=== PATIENT | female | born 1960 | race African-American/Black ===

== ENCOUNTER 2023-03-28 20:54 | Emergency (ER) | payer OTHER ==
[~2023-03-28] VITALS: Ht 162.6 cm; Wt 65.0 kg
[~2023-03-28 20:54] MED LIST: ACET-2247 PO; BUME1TAB34 PO; DOCU-385 PO; FAMO20 PO; HEPA500018 SQ; HYDR-4723 PO; LOSA-381 PO; METO25XL PO; METO5TAB7 PO; SPIR-37 PO
[2023-03-28 20:58] VITALS: TEMP 97.9
[2023-03-28 21:56] LABS: BASOPHILS % (AUTO) 0.7 % (0.0-2.0); EOSINOPHILS % (AUTO) 0.8 % (1.0-6.0); HEMATOCRIT 25.8 % (36-46); HEMOGLOBIN 8.1 g/dL (12.0-16.0); LYMPHOCYTES % (AUTO) 36.3 % (22.0-44.0); MEAN CORPUSCULAR HGB CONC 31.5 G/dL (31.0-37.0); MEAN CORPUSCULAR VOLUME 96 fL (80-100); MONOCYTES # (AUTO) 0.4 K/uL (0.1-1.0); MONOCYTES % (AUTO) 7.7 % (2.0-9.0); NEUTROPHILS % (AUTO) 54.5 % (40.0-70.0); PLATELET COUNT (AUTO) 132 K/uL (150-450); WHITE BLOOD COUNT (AUTO) 5.4 K/uL (4.5-11.0)
[2023-03-28 22:05] LABS: ANION GAP 15 mmol/L (8-16); CALCIUM, TOTAL 8.6 mg/dL (8.8-10.5); CARBON DIOXIDE 20 mmol/L (22-29); CHLORIDE 107 mmol/L (98-107); CREATININE 0.72 mg/dL (0.60-1.30); GLOMERULAR FILTR. RATE CALC > 60 mL/min (>60); GLUCOSE,RANDOM 84 mg/dL (70-110); POTASSIUM 3.7 mmol/L (3.5-5.1); SODIUM SERUM 142 mmol/L (136-145); UREA NITROGEN, BLOOD 6 mg/dL (7-18)
[2023-03-28 22:09] LABS: B-TYPE NATRIURETIC PEPTIDE 1540 pg/mL (0-100)
[2023-03-28 22:13] LABS: TROPONIN I-HIGH SENSITIVITY 22 ng/L (<51)
[2023-03-28 22:29] LABS: ALANINE AMINOTRANSFERASE 44 U/L (12-78); ALBUMIN 3.1 g/dL (3.4-5.0); ALKALINE PHOSPHATASE 167 U/L (46-116); ASPARTATE AMINOTRANSFERASE 63 U/L (15-37); BILIRUBIN,TOTAL 1.1 mg/dL (0.1-1.0); CREATINE KINASE, TOTAL ONLY 122 U/L (26-192); TOTAL PROTEIN, SERUM 8.1 g/dL (6.4-8.2)
[2023-03-28 22:47] LABS: COVID AG,FIA SOURCE NASAL SWAB
[2023-03-28 23:01] LABS: SARS-COV2 (COVID) ANTIGEN,FIA Negative (Negative)
[2023-03-28] MEDS ORDERED: SPIRONOLACTONE 25 MG TABLET PO ONE (23:30)
[2023-03-28] MEDS ORDERED: HYDROCODONE/ACETAMINOPHEN 5-325 MG TABLET PO ONE (23:30)
[2023-03-28] MEDS ORDERED: BUMETANIDE 1 MG TABLET PO ONE (23:30)
[2023-03-28 23:40] VITALS: BP 136/76; PULSE 104; RESP 18
[2023-03-29] MEDS ORDERED: BUME1TAB34 PO (00:52)
[2023-03-29] MEDS ORDERED: DOCU-385 PO (00:52)
[2023-03-29] MEDS ORDERED: LOSA-381 PO (00:52)
[2023-03-29] MEDS ORDERED: SPIR-37 PO (00:52)
[2023-03-29] MEDS ORDERED: FAMO20 PO (00:52)
[2023-03-29] MEDS ORDERED: HYDR-4723 PO (00:52)
[2023-03-29] MEDS ORDERED: METO25XL PO (00:52)
== END 2023-03-29 01:31 | disposition home or self-care (01) ==
LOC: EMS 21:05
DX: I13.0 Hypertensive heart and chronic kidney disease with heart failure and stage 1 through stage 4 chronic kidney disease, or unspecified chronic kidney disease (principal); I50.20 Unspecified systolic (congestive) heart failure; N18.4 Chronic kidney disease, stage 4 (severe); D64.9 Anemia, unspecified; K21.9 Gastro-esophageal reflux disease without esophagitis; G89.4 Chronic pain syndrome; F10.20 Alcohol dependence, uncomplicated; E78.00 Pure hypercholesterolemia, unspecified; F17.210 Nicotine dependence, cigarettes, uncomplicated; F12.90 Cannabis use, unspecified, uncomplicated; Z98.890 Other specified postprocedural states; Z88.6 Allergy status to analgesic agent; Z91.148 Patient's other noncompliance with medication regimen for other reason; Z20.822 Contact with and (suspected) exposure to COVID-19
CPT/HCPCS: 71045; 80053; 82550; 83880; 84484; 85025; 93005; 99285; 36415-L1; 36415-TC